=== PATIENT | female | born 1995 | race Caucasian/White ===

== ENCOUNTER 2018-05-21 23:36 | Emergency (ER) | payer SELFPAY ==
[~2018-05-21] VITALS: Ht 167.6 cm; Wt 84.8 kg
[2018-05-21 23:57] VITALS: BP 127/81
[2018-05-22] MEDS ORDERED: CYCLOBENZAPRINE 10 MG TABLET PO ONE (00:30)
[2018-05-22] MEDS ORDERED: CYCLOBENZAPRINE 10 MG TABLET ONE (00:30)
[2018-05-22] MEDS ORDERED: oxyCODONE/APAP (5/325 MG) 1 UDTAB TABLET ONE (00:30)
[2018-05-22] MEDS ORDERED: ONDANSETRON 4 MG TAB.RAPDIS SL ONE (00:30)
[2018-05-22] MEDS ORDERED: ONDANSETRON 4 MG TAB.RAPDIS ONE (00:30)
[2018-05-22] MEDS ORDERED: oxyCODONE/APAP (5/325 MG) 1 UDTAB TABLET PO ONE (00:30)
== END 2018-05-22 01:09 | disposition home or self-care (01) ==
LOC: ER 23:36
DX: S16.1XXA Strain of muscle, fascia and tendon at neck level, initial encounter (principal); M54.5 Low back pain; V49.69XA Unspecified car occupant injured in collision with other motor vehicles in traffic accident, initial encounter; Y93.89 Activity, other specified; Y92.413 State road as the place of occurrence of the external cause; Y99.8 Other external cause status
CPT/HCPCS: 99284; A4606; Q0162; Z7610